=== PATIENT | female | born 1980 | race American Indian/Alaskan Native ===

== ENCOUNTER 2018-07-31 18:54 | Emergency (ER) | payer BC ==
--- NOTE | 2018-07-31 18:59 | Emergency Department Report ---
Chief Complaint: Headache Stated Complaint: MIGRANE 3DAYS/PAIN Time Seen by Provider: 07/31/18 18:57 - HPI History of Present Illness: 3 DAY HX MIGRAINE WITH N/V ambulatory no focal neuro def MSE completed MSE screening note: Focused history and physical exam performed. Due to findings the following was ordered: ED Disposition for MSE Condition: Stable
--- NOTE | 2018-07-31 22:52 | Emergency Department Report ---
ED Headache HPI - General Chief Complaint: Headache Stated Complaint: MIGRANE 3DAYS/PAIN Time Seen by Provider: 07/31/18 18:57 Source: patient, family - History of Present Illness Initial Comments: This is a 38-year-old female here report that she is having right side had migraine 3 days with photophobia and phonophobia and nausea and vomiting. She says she has been having this for 6 years and she has had CT scan of her head done and diagnosed with migraines by a neurologist. She is also complaining of right lower back tooth pain that started last night and is making her migraine worse. She says she has had pain to that tooth before and she just got insurance she does have a dentist. Denies any dizziness or head trauma. Denies any neck pain or stiffness. Denies any nasal congestion, sore throat, shortness of breath or chest pain. Denies any swelling to face. Pain is 10 out of 10 to tooth and had an achy. She says she took [id number] pain medication but it is not working. Pain is exacerbated by light and noise and no alleviating factors. Timing/Duration: constant, increasing, other (3 days) Quality: severe, achy Head Injury Location: frontal (right), temporal (right), parietal (right) Recent Head Trauma: chronic headaches Modifying Factors: improves with: exposure to light, other (noise) Associated Symptoms: nausea/vomiting, other (right lower toothache). denies: confusion, fatigue, facial pain, fever/chills, flushing, loss of consciousness, nasal congestion, nasal drainage, numbness in legs/feet, rash, seizures, sinus infection, stiff neck, vision changes, weakness Allergies/Adverse Reactions: Allergies No Known Allergies Allergy (Unverified 07/31/18 19:19) Home Medications: Ambulatory Orders Acetaminophen/Codeine [Tylenol /Codeine # 3 tab] 1 tab PO Q6H PRN #14 tab 08/01/18 Amoxicillin [Amoxicillin TAB] 875 mg PO BID 10 Days #20 tablet 08/01/18 Ibuprofen [Motrin 600 MG tab] 600 mg PO Q8H PRN #15 tablet 08/01/18 Ondansetron [Zofran ODT TAB] 8 mg PO Q8HR PRN #12 tab.rapdis 08/01/18 SUMAtriptan SUCCINATE [Imitrex] 50 mg PO BID PRN #12 tab 08/01/18 ED Review of Systems ROS: Stated complaint: MIGRANE 3DAYS/PAIN Other details as noted in HPI Constitutional: denies: chills, fever ENT: dental pain. denies: ear pain, throat pain, hearing loss, epistaxis, congestion Respiratory: denies: cough, shortness of breath, wheezing Cardiovascular: denies: chest pain, palpitations, edema, syncope Gastrointestinal: nausea, vomiting. denies: abdominal pain, diarrhea, constipation, hematemesis, hematochezia Musculoskeletal: denies: back pain, joint swelling, arthralgia, myalgia Skin: denies: rash Neurological: headache. denies: numbness, paresthesias, abnormal gait, vertigo ED Past Medical Hx - Past Medical History Previous Medical History?: Yes Hx Headaches / Migraines: Yes - Surgical History Past Surgical History?: Yes Additional Surgical History: Partial Hysterectomy - Family History Family history: hypertension - Social History Smoking Status: Never Smoker Substance Use Type: None - Medications Home Medications: Home Medications Medication Instructions Recorded Confirmed Last Taken Type Acetaminophen/Codeine [Tylenol 1 tab PO Q6H PRN #14 tab 08/01/18 Unknown Rx /Codeine # 3 tab] Amoxicillin [Amoxicillin TAB] 875 mg PO BID 10 Days #20 tablet 08/01/18 Unknown Rx Ibuprofen [Motrin 600 MG tab] 600 mg PO Q8H PRN #15 tablet 08/01/18 Unknown Rx Ondansetron [Zofran ODT TAB] 8 mg PO Q8HR PRN #12 tab.rapdis 08/01/18 Unknown Rx SUMAtriptan SUCCINATE [Imitrex] 50 mg PO BID PRN #12 tab 08/01/18 Unknown Rx ED Physical Exam - General Limitations: No Limitations General appearance: alert, in no apparent distress - Head Head exam: Present: atraumatic, normocephalic, normal inspection, other (normal exam) - Eye Eye exam: Present: normal appearance, PERRL, EOMI. Absent: periorbital swelling, periorbital tenderness Pupils: Present: normal accommodation - ENT ENT exam: Present: normal exam, normal orophraynx, mucous membranes moist, TM's normal bilaterally, normal external ear exam - Expanded ENT Exam Expanded Ear exam: Present: normal external inspection Mouth exam: Present: normal external inspection, tongue normal. Absent: drooling, trismus, muffled voice, tongue elevation, laceration Teeth exam: Present: dental tenderness # (#32), gingival enlargement, other (patient report dental tenderness around tooth #32.). Absent: fractured tooth # 1 - Dental Tenderness (#32), Other (mild gingivitis noted) Throat exam: Positive: normal inspection. Negative: tonsillar erythema, tonsillomegaly, tonsillar exudate, R peritonsillar mass, L peritonsillar mass - Neck Neck exam: Present: normal inspection, full ROM, other (no C-spine tenderness). Absent: tenderness, lymphadenopathy - Respiratory Respiratory exam: Absent: normal lung sounds bilaterally, respiratory distress, chest wall tenderness - Cardiovascular Cardiovascular Exam: Present: regular rate, normal rhythm, normal heart sounds - Extremities Exam Extremities exam: Present: normal inspection, full ROM, normal capillary refill, other (No cce. + 2 pulses in all extremities, no neurovascular compromise). Absent: tenderness, pedal edema, joint swelling, calf tenderness - Back Exam Back exam: Present: normal inspection, full ROM, other (ambulates without any difficulties). Absent: tenderness, CVA tenderness (R), CVA tenderness (L), muscle spasm, paraspinal tenderness, vertebral tenderness, rash noted - Neurological Exam Neurological exam: Present: alert, oriented X3, normal gait, reflexes normal. Absent: motor sensory deficit - Expanded Neurological Exam Expanded Neurological exam: Absent: innattentive, memory loss-remote event, memory loss- recent event, ataxia, receptive aphasia, expressive aphasia, total aphasia, tremor, protecting the airway Patient oriented to: Present: person, place, time Speech: Present: fluid speech Cranial nerves: EOM's Intact: Normal, Gag Reflex: Normal, Tongue Deviation: Normal Cerebellar function: Romberg: Normal Upper motor neuron: Pronator Drift: Normal, Sensory Extinction: Normal Sensory exam: Upper Extremity Light Touch: Normal, Upper Extremity Temperature: Normal, Lower Extremity Light Touch: Normal, Lower Extremity Temperature: Normal Motor strength exam: RUE: 5, LUE: 5, RLE: 5, LLE: 5 Best Eye Response (Rafiq): (4) open spontaneously Best Motor Response (Rafiq): (6) obeys commands Best Verbal Response (Farrar): (5) oriented Rafiq Total: 15 - Psychiatric Psychiatric exam: Present: normal affect, normal mood - Skin Skin exam: Present: warm, dry, intact, normal color. Absent: rash ED Course Vital Signs 07/31/18 07/31/18 07/31/18 19:12 19:16 22:45 Temperature 97.7 F 97.7 F 97.9 F Pulse Rate 69 69 65 Respiratory 18 16 14 Rate Blood Pressure 111/68 111/68 Blood Pressure 119/66 [Right] O2 Sat by Pulse 100 100 100 Oximetry 07/31/18 22:47 Temperature Pulse Rate Respiratory 14 Rate Blood Pressure Blood Pressure [Right] O2 Sat by Pulse Oximetry - Reevaluation(s) Reevaluation #1: 08/01/18 00:02 Patient received Adona 5/325 2 tablets her to take and she started on IV fluids, Toradol 30 mg IV and Zofran 8 mg IV. Patient also started on Imitrex for m igraine headache. Reevaluation #2: 08/01/18 01:14 Patient reevaluated and she voiced relief of pain from tooth and head. She says she is feeling a lot better. ED Medical Decision Making - Medical Decision Making This is a 38-year-old female here for onset of chronic migraine 3 days and also tooth #32 with pain. She was found to have gingivitis and toothache and also migraine headache. Patient was treated with 1 L of IV fluids, Zofran 8 mg IV and she was given Adona 5/325 2 tablets by mouth for toothache. She was also given Decadron 10 mg IV and Imitrex 50 mg by mouth. Her headache has been relieved. I discussed the patient that she needs to follow up with her primary care neurologist and also with a dentist since she now have insurance within 3-5 days. I discussed the diagnosis, treatment plan and she voiced understanding. Patient discharged home in stable condition, vital signs stable she is afebrile and given a prescription for Zofran, Imitrex, Tylenol No. 3, Motrin and amoxicillin. Critical care attestation.: If time is entered above; I have spent that time in minutes in the direct care of this critically ill patient, excluding procedure time. ED Disposition Clinical Impression: Toothache, Gingivitis Migraine Qualifiers: Migraine type: unspecified Status migrainosus presence: without status migrainosus Intractability: not intractable Qualified Code(s): G43.909 - Migraine, unspecified, not intractable, without status migrainosus Nausea & vomiting Qualifiers: Vomiting type: unspecified Vomiting Intractability: non-intractable Qualified Code(s): R11.2 - Nausea with vomiting, unspecified Disposition: DC- TO HOME OR SELFCARE Is pt being admited?: No Does the pt Need Aspirin: No Condition: Stable Instructions: Gingivitis (ED), Migraine Headache (ED), Acute Nausea and Vomiting (ED), Toothache (ED) Additional Instructions: Please follow up with dentist in 3-5 days Follow-up with your neurologist and primary care doctor in 2-3 days and if you do not have a neurologist or primary care please see referral in discharge instruction paperwork Take medication as prescribed but please do not take Tylenol 3 if you driving or operating heavy machinery as this medication causes drowsiness If your condition worsens, return to emergency room Prescriptions: Acetaminophen/Codeine [Tylenol /Codeine # 3 tab] 1 tab PO Q6H PRN #14 tab PRN Reason: moderate to severe pain Amoxicillin [Amoxicillin TAB] 875 mg PO BID 10 Days #20 tablet Ibuprofen [Motrin 600 MG tab] 600 mg PO Q8H PRN #15 tablet PRN Reason: Pain Ondansetron [Zofran ODT TAB] 8 mg PO Q8HR PRN #12 tab.rapdis PRN Reason: Nausea And Vomiting SUMAtriptan SUCCINATE [Imitrex] 50 mg PO BID PRN #12 tab PRN Reason: for migraine headache Referrals: PRIMARY CAREMD [Primary Care Provider] - 2-3 Days [facility] [Outside] - 2-3 Days [facility] [Outside] - 3-5 Days EDWIN NDIAYE MD [Staff Physician] - 2-3 Days Forms: Accompanied Note, Work/School Release Form(ED)
[2018-07-31] MEDS ORDERED: ZOFRAN IV ONE (22:56)
[2018-07-31] MEDS ORDERED: NACL 0.9% 1000 ML 1,000 ML IV ONE (22:56)
[2018-07-31] MEDS ORDERED: TORADOL IVP ONE (22:56)
[2018-07-31] MEDS ORDERED: NORCO 10/325 PO ONE (22:57)
[2018-07-31] MEDS ORDERED: IMITREX PO ONE (22:57)
[2018-07-31] MEDS ORDERED: DECADRON IV ONE (22:57)
[2018-08-01 01:31] VITALS: BP 131/73
== END 2018-08-01 01:49 | disposition home or self-care (01) ==
LOC: ED 18:54
DX: G43.909 Migraine, unspecified, not intractable, without status migrainosus (principal); K05.10 Chronic gingivitis, plaque induced; R11.2 Nausea with vomiting, unspecified
CPT/HCPCS: 96361; 96374; 96375; 99283; J1100; J1885; J2405; J7030

== ENCOUNTER 2018-08-17 09:21 | Outpatient (CLI) | payer BC ==
--- NOTE | 2018-08-18 08:45 | Mammography Report ---
BILATERAL MAMMOGRAM: FINDINGS: Baseline examination. The breast tissue is heterogeneously dense, which could obscure detection of small masses (approximately 50%-75% glandular). No mass, distortion, suspicious calcification, or skin change is seen. CAD was utilized. IMPRESSION: Negative mammogram. There is no mammographic evidence of malignancy. RECOMMENDATION: Follow-up per ACS guidelines. BI-RADS CATEGORY: 1 = Negative ACR BI-RADS MAMMOGRAPHIC CODES: 0 = Needs additional imaging evaluation; 1 = Negative; 2 = Benign; 3 = Probably benign; 4 = Suspicious; 5 = Malignant; 6 = Known biopsy-proven malignancy COMMENT: 1. Dense breast tissue, i.e., adenosis, fibrocystic changes, etc., may obscure an underlying neoplasm. 2. Approximately 10% of cancers are not detected with mammography. 3. A negative mammography report should not delay biopsy if a clinically suspicious mass is present. COMMENT: Patient follow-up letters are generated in [employer].
== END 2018-08-17 09:22 | disposition home or self-care (01) ==
LOC: MAMMO 09:21
PROVIDERS: ATTEND Obstetrics & Gynecology
DX: Z12.31 Encounter for screening mammogram for malignant neoplasm of breast (principal); Z90.710 Acquired absence of both cervix and uterus
CPT/HCPCS: 77067

== ENCOUNTER 2019-02-03 13:20 | Emergency (ER) | payer BC ==
[2019-02-03 13:38] VITALS: BP 116/61
--- NOTE | 2019-02-03 13:41 | Event Note ---
ED Screening Note Date of service: 02/03/19 Time: 13:39 ED Screening Note: 38 y o with hx of back spasm presents with mid low shooting pain down legs and up back caused her to fall earlier today PMH: hysterectomy 2016 This initial assessment/diagnostic orders/clinical plan/treatment(s) is/are s ubject to change based on patients health status, clinical progression and re- assessment by fellow clinical providers in the ED. Further treatment and workup at subsequent clinical providers discretion. Patient/guardian urged not to elope from the ED as their condition may be serious if not clinically assessed and managed. Initial orders include: CT
--- NOTE | 2019-02-03 15:12 | Emergency Department Report ---
HPI - HPI HPI: 38-year-old -[place] Citizen female presents to the emergency department with a complaint of low back pain. She says that she's been dealing with some low back pain for the past 2 weeks that has felt her like it was "[id number]." However today, she was reaching over to fill the dog bowl and she "felt something pop." Since that time she has had low back pain with some radiation down both of her legs. She denies any numbness, problems with bowel or bladder or any obvious neurological deficits. She has not taken anything for her symptoms prior to presentation today. <KATELYN GALLARDO - Last Filed: 02/03/19 15:11> <ESTEFANIA PAEZ - Last Filed: 02/03/19 18:50> - General Chief Complaint: Back Pain/Injury Time Seen by Provider: 02/03/19 13:38 ED Past Medical Hx - Past Medical History Hx Headaches / Migraines: Yes - Surgical History Additional Surgical History: Partial Hysterectomy - Social History Smoking Status: Never Smoker Substance Use Type: Alcohol <KATELYN GALLARDO - Last Filed: 02/03/19 15:11> <ESTEFANIA PAEZ - Last Filed: 02/03/19 18:50> - Medications Home Medications: Home Medications Medication Instructions Recorded Confirmed Last Taken Type Acetaminophen/Codeine [Tylenol 1 tab PO Q6H PRN #14 tab 08/01/18 Unknown Rx /Codeine # 3 tab] Amoxicillin [Amoxicillin TAB] 875 mg PO BID 10 Days #20 tablet 08/01/18 Unknown Rx Ibuprofen [Motrin 600 MG tab] 600 mg PO Q8H PRN #15 tablet 08/01/18 Unknown Rx Ondansetron [Zofran ODT TAB] 8 mg PO Q8HR PRN #12 tab.rapdis 08/01/18 Unknown Rx SUMAtriptan SUCCINATE [Imitrex] 50 mg PO BID PRN #12 tab 08/01/18 Unknown Rx Acetaminophen/Codeine [Tylenol 1 tab PO Q6H PRN #12 tab 02/03/19 Unknown Rx /Codeine # 3 tab] ED Review of Systems ROS: Stated complaint: LOW BACK PAIN Other details as noted in HPI Comment: All other systems reviewed and negative Constitutional: denies: chills, fever Respiratory: denies: shortness of breath Cardiovascular: denies: chest pain, edema Gastrointestinal: denies: abdominal pain Genitourinary: denies: dysuria, discharge Musculoskeletal: back pain. denies: arthralgia Neurological: denies: weakness, numbness <KATELYN GALLARDO - Last Filed: 02/03/19 15:11> ROS: Stated complaint: LOW BACK PAIN Other details as noted in HPI <ESTEFANIA PAEZ - Last Filed: 02/03/19 18:50> Physical Exam - Physical Exam Vital Signs: Vital Signs 02/03/19 13:26 Temperature 98.1 F Pulse Rate 81 Respiratory 16 Rate Blood Pressure 116/61 O2 Sat by Pulse 100 Oximetry <KATELYN GALLARDO - Last Filed: 02/03/19 15:11> - Physical Exam Vital Signs: Vital Signs 02/03/19 13:26 Temperature 98.1 F Pulse Rate 81 Respiratory 16 Rate Blood Pressure 116/61 O2 Sat by Pulse 100 Oximetry <ESTEFANIA PAEZ - Last Filed: 02/03/19 18:50> ED Course Vital Signs 02/03/19 13:26 Temperature 98.1 F Pulse Rate 81 Respiratory 16 Rate Blood Pressure 116/61 O2 Sat by Pulse 100 Oximetry <KATELYN GALLARDO S - Last Filed: 02/03/19 15:11> Vital Signs 02/03/19 13:26 Temperature 98.1 F Pulse Rate 81 Respiratory 16 Rate Blood Pressure 116/61 O2 Sat by Pulse 100 Oximetry <ESTEFANIA PAEZ - Last Filed: 02/03/19 18:50> ED Medical Decision Making - Medical Decision Making This is a 38-year-old female that was originally seen and examined by Katelyn Rios but was are not to me for a pending CT scan. A CT scan of lumbar spine has been obtained and dictated by radiologist with a bulging L5-S1. Patient was notified of the CT results with no questions noted by the patient. Patient was walking from room to the bathroom and stated that symptoms has significantly improved since treatment. I will discharge patient with Tylenol with Codeine for pain. Vital signs are stable. Patient was instructed to Follow-up with a orthopedic doctor in 3-5 days or if symptoms worsen and continue return to emergency room as soon as possible. At time of discharge, the patient does not seem toxic or ill in appearance. No acute signs of distress noted. Patient agrees to discharge treatment plan of care. No further questions noted by the patient. <ESTEFANIA PAEZ - Last Filed: 02/03/19 18:50> Critical care attestation.: If time is entered above; I have spent that time in minutes in the direct care of this critically ill patient, excluding procedure time. <KATELYN GALLARDO - Last Filed: 02/03/19 15:11> Critical care attestation.: If time is entered above; I have spent that time in minutes in the direct care of this critically ill patient, excluding procedure time. <ESTEFANIA PAEZ - Last Filed: 02/03/19 18:50> ED Disposition <KATELYN GALLARDO S - Last Filed: 02/03/19 15:11> Is pt being admited?: No Does the pt Need Aspirin: No <ESTEFANIA PAEZ - Last Filed: 02/03/19 18:50> Clinical Impression: Bulging lumbar disc Disposition: - TO HOME OR SELFCARE Condition: Stable Instructions: Low Back Strain (ED), Acetaminophen/Codeine (By mouth) Additional Instructions: Follow-up with a orthopedic doctor in 3-5 days or if symptoms worsen and continue return to emergency room as soon as possible. Prescriptions: Acetaminophen/Codeine [Tylenol /Codeine # 3 tab] 1 tab PO Q6H PRN #12 tab PRN Reason: Pain , Severe (7-10) Referrals: CHAD SOTELO MD [Primary Care Provider] - 3-5 Days PRIMARY CAREMD [Referring] - 3-5 Days CHARMAINE BLACKMON MD [Staff Physician] - 3-5 Days [facility] [Outside] - 3-5 Days [facility] [Outside] - 3-5 Days Forms: Work/School Release Form(ED)
[2019-02-03] MEDS ORDERED: PERCOCET 5/325 PO ONE (15:28)
[2019-02-03] MEDS ORDERED: TORADOL IM ONE (15:28)
--- NOTE | 2019-02-03 18:06 | Cat Scan Report ---
CT lumbar spine without contrast CLINICAL HISTORY: Back pain, trauma FINDINGS: No previous exams available for comparison. The lumbar spine demonstrate appropriate alignm ent without spondylolisthesis. Furthermore, there is no CT evidence of acute fracture involving the l umbar spine. There is a broad-based left-sided disc bulge L5-S1 which effaces the left lateral recess and encroach es on the proximal left S1 nerve root sheath at. The neural foramen appear patent. There is a minimal disc bulge at L4-5. The upper lumbar disc spaces appear fairly well-maintained without CT evidence o f bony spinal stenosis. All CT scans at this location are performed using the CT dose reduction for A LEIDY by means of automated exposure control. IMPRESSION: There is no CT evidence of acute fracture involving the lumbar spine. There is a broad-based left-sided disc bulge at L5-S1 which encroaches on the left lateral recess as described. Signer Name: Mihai Yost MD Signed: 02/03/2019 6:02 PM Workstation Name: [id number]
== END 2019-02-03 18:57 | disposition home or self-care (01) ==
LOC: ED 13:20
DX: M51.27 Other intervertebral disc displacement, lumbosacral region (principal); G43.909 Migraine, unspecified, not intractable, without status migrainosus; Z90.710 Acquired absence of both cervix and uterus; Z79.899 Other long term (current) drug therapy
CPT/HCPCS: 72131; 96372; 99283; J1885

== ENCOUNTER 2021-03-10 11:00 | Emergency (ER) | payer SELFPAY ==
[2021-03-10 11:19] VITALS: BP 121/86
[2021-03-10] MEDS ORDERED: HYDROcodone/ACETAMINOPHEN 5-325 MG TAB PO ONE (11:46)
[2021-03-10] MEDS ORDERED: IBUPROFEN 800 MG TAB PO ONE (11:47)
[2021-03-10] MEDS ORDERED: LIDOCAINE VISCOUS 2% 15 ML ORAL LIQD PO ONE (11:47)
--- NOTE | 2021-03-10 11:52 | Emergency Department Report ---
HPI - General Chief Complaint: Upper Respiratory Infection Time Seen by Provider: 03/10/21 11:26 - HPI HPI: Room 31 The patient is a 40-year-old female present with a chief complaint of sore throat. The patient states her symptoms began yesterday with a sore throat and fatigue. Patient states she had one episode of nausea vomiting yesterday. Patient states this morning she awakened with a headache and left ear pain in addition to the sore throat and body aches. Patient denies history of cough. The patient has not received any vaccinations against COVID-19. Patient has no known sick contacts. The patient currently gives her sore throat and ear pain a score of 10/10. The patient states her drove her to the emergency department and she is not driving ED Past Medical Hx - Past Medical History Previous Medical History?: Yes Hx Headaches / Migraines: Yes - Surgical History Past Surgical History?: Yes Additional Surgical History: Partial Hysterectomy - Family History Family history: no significant - Social History Smoking Status: Former Smoker (None x8 years) Substance Use Type: Alcohol (Occasional), Marijuana (Occasional) - Medications Home Medications: Home Medications Medication Instructions Recorded Confirmed Last Taken Type Acetaminophen/Codeine [Tylenol 1 tab PO Q6H PRN #14 tab 08/01/18 Unknown Rx /Codeine # 3 tab] Amoxicillin [Amoxicillin TAB] 875 mg PO BID 10 Days #20 tablet 08/01/18 Unknown Rx Ibuprofen [Motrin 600 MG tab] 600 mg PO Q8H PRN #15 tablet 08/01/18 Unknown Rx Ondansetron [Zofran ODT TAB] 8 mg PO Q8HR PRN #12 tab.rapdis 08/01/18 Unknown Rx SUMAtriptan SUCCINATE [Imitrex] 50 mg PO BID PRN #12 tab 08/01/18 Unknown Rx Acetaminophen/Codeine [Tylenol 1 tab PO Q6H PRN #12 tab 02/03/19 Unknown Rx /Codeine # 3 tab] Amoxicillin/Potassium Clav 1 each PO BID #20 tablet 03/10/21 Unknown Rx [Augmentin 875-125 Tablet] HYDROcodone/APAP 5-325 [Hall 1 - 2 each PO Q6HR PRN #10 tablet 03/10/21 Unknown Rx 5/325] Ibuprofen [Motrin 800 MG tab] 800 mg PO Q8HR PRN #20 tablet 03/10/21 Unknown Rx ED Review of Systems ROS: Stated complaint: BODYACHES,SORETHROAT Other details as noted in HPI Constitutional: fever (?) Eyes: denies: eye pain ENT: ear pain, throat pain Respiratory: denies: cough Cardiovascular: denies: chest pain Endocrine: no symptoms reported Gastrointestinal: nausea, vomiting Genitourinary: denies: dysuria Musculoskeletal: myalgia Neurological: headache Physical Exam - Physical Exam Vital Signs: Vital Signs 03/10/21 03/10/21 11:18 11:19 Temperature 99.3 F Pulse Rate 87 Respiratory 18 Rate Blood Pressure 121/86 O2 Sat by Pulse 100 Oximetry Physical Exam: GENERAL: The patient is well-developed well-nourished female sitting in chair appearing to be in mild discomfort. [] HEENT: Normocephalic. Atraumatic. Extraocular motions are intact. Pharynx injected bilaterally. No exudates appreciated. Left TM effusion, no erythema appreciated in the left TM NECK: Supple. No meningitic signs are noted. There is no adenopathy noted. CHEST/LUNGS: Clear to auscultation. There is no respiratory distress noted. HEART/CARDIOVASCULAR: Regular. There is no tachycardia. There is no gallop rub or murmur. ABDOMEN: Abdomen is soft, nontender. Patient has normal bowel sounds. There is no abdominal distention. SKIN: There is no rash. There is no edema. There is no diaphoresis. NEURO: The patient is awake, alert, and oriented. The patient is cooperative. The patient has no focal neurologic deficits. The patient has normal speech. GCS 15 MUSCULOSKELETAL: There is no evidence of acute injury. ED Course Vital Signs 03/10/21 03/10/21 11:18 11:19 Temperature 99.3 F Pulse Rate 87 Respiratory 18 Rate Blood Pressure 121/86 O2 Sat by Pulse 100 Oximetry ED Medical Decision Making - Differential Diagnosis Pharyngitis Critical care attestation.: If time is entered above; I have spent that time in minutes in the direct care of this critically ill patient, excluding procedure time. ED Disposition Clinical Impression: Acute pharyngitis Disposition: HOME / SELF CARE / HOMELESS Is pt being admited?: No Does the pt Need Aspirin: No Condition: Stable Instructions: Pharyngitis, [id number] Additional Instructions: Return to the emergency department should you develop worsening symptoms, inability to tolerate food or liquids, high fever or any other concerns Prescriptions: Amoxicillin/Potassium Clav [Augmentin 875-125 Tablet] 1 each PO BID #20 tablet Ibuprofen [Motrin 800 MG tab] 800 mg PO Q8HR PRN #20 tablet PRN Reason: Pain, Moderate (4-6) HYDROcodone/APAP 5-325 [Hall 5/325] 1 - 2 each PO Q6HR PRN #10 tablet PRN Reason: Pain Referrals: ESTELA MELARA MD [Staff Physician] - 3-5 Days (Dr. Melara is an otol aryngologist (ear nose and throat doctor). Please follow-up with him for further evaluation) Time of Disposition: 11:54
== END 2021-03-10 12:14 | disposition home or self-care (01) ==
LOC: ED 11:00
DX: J02.9 Acute pharyngitis, unspecified (principal); G43.909 Migraine, unspecified, not intractable, without status migrainosus; Z90.711 Acquired absence of uterus with remaining cervical stump; Z87.891 Personal history of nicotine dependence
CPT/HCPCS: 99282

== ENCOUNTER 2022-01-23 18:01 | Emergency (ER) | payer BC, MEDICAID ==
[2022-01-23 18:41] VITALS: BP 124/75
[2022-01-23] MEDS ORDERED: PANTOPRAZOLE 40 MG TAB PO ONE (21:21)
[2022-01-23] MEDS ORDERED: KETOROLAC 30 MG/1 ML INJ IM ONE (21:21)
[2022-01-23] MEDS ORDERED: HYDROmorphone 0.5 MG/0.5 ML INJ IM ONE (21:21)
[2022-01-23] MEDS ORDERED: ACETAMINOPHEN 500 MG TAB PO ONE (21:21)
--- NOTE | 2022-01-23 21:22 | Emergency Department Report ---
ED General Adult HPI - General Chief complaint: Chest Pain Stated complaint: CHEST AND BACK PAIN WHEN BREATHING OR LAYING Time Seen by Provider: 01/23/22 21:10 Source: patient, RN notes reviewed, old records reviewed Mode of arrival: Ambulatory Limitations: No Limitations - History of Present Illness Initial comments: The patient was evaluated in the emergency department for symptoms described in the history of present illness. He/she was evaluated in the context of the global COVID-19 pandemic, which necessitated consideration that the patient kay ht be at risk for infection with the virus that causes COVID-19. Institutional protocols and algorithms that pertain to the evaluation of patients at risk for COVID-19 are in a state of rapid change based on information released by regulatory bodies including the CDC and federal and state organizations. These policies and algorithms were followed during the patient's care in the emergency department. Please note that these policies, procedures and recommendations changed on a rapid basis. During the history and physical examination, I am chaperoned by nurse Mee Amaya. This is a pleasant and cooperative 41-year-old female who is right-hand dominant who has a distant history of partial hysterectomy. She otherwise denies chronic medical conditions. She works as a [employer], and recently lifted a heavy 300 pound patient. The patient herself is quite slight in stature. She presents to the department today with complaint of lower back pain, chest wall pain, and upper back pain, that increases with deep breathing, range of motion, laying flat. Decreases with sitting upright and certain positions. No vomiting, diaphoresis or exertional shortness of breath. Pains do not radiate to the arms or legs. There is no vomiting or diaphoresis. Patient denies travel, surgery, immobili zation, oral contraceptive use, and DVT/pulmonary embolism risk factors. Reports no family history of DVT or pulmonary embolism. Has taken [id number] medications at home, with minimal improvement in symptoms. No urinary symptoms. Pain has been present since yesterday morning. -: days(s) Location: chest, back Severity scale (0 -10): 9 Consistency: other Improves with: other Worsens with: other - Related Data Previous Rx's Medication Instructions Recorded Last Taken Type Amoxicillin [Amoxicillin TAB] 875 mg PO BID 10 Days #20 tablet 08/01/18 Unknown Rx Ibuprofen [Motrin 600 MG tab] 600 mg PO Q8H PRN #15 tablet 08/01/18 Unknown Rx Ondansetron [Zofran ODT TAB] 8 mg PO Q8HR PRN #12 tab.rapdis 08/01/18 Unknown Rx SUMAtriptan SUCCINATE [Imitrex] 50 mg PO BID PRN #12 tab 08/01/18 Unknown Rx Amoxicillin/Potassium Clav 1 each PO BID #20 tablet 03/10/21 Unknown Rx [Augmentin 875-125 Tablet] Acetaminophen [Non-Aspirin Extra 500 mg PO Q6HR PRN #30 tablet 01/23/22 Unknown Rx Strength] Ibuprofen [Motrin] 600 mg PO Q8H PRN #30 tablet 01/23/22 Unknown Rx Allergies Allergy/AdvReac Type Severity Reaction Status Date / Time No Known Allergies Allergy Verified 01/23/22 18:42 ED Review of Systems ROS: Stated complaint: CHEST AND BACK PAIN WHEN BREATHING OR LAYING Other details as noted in HPI Constitutional: denies: fever Eyes: denies: eye discharge ENT: denies: epistaxis Respiratory: other (Pain with deep inspiration). denies: cough Cardiovascular: chest pain Gastrointestinal: denies: abdominal pain Musculoskeletal: back pain Neurological: denies: weakness Psychiatric: anxiety Hematological/Lymphatic: denies: easy bleeding ED Past Medical Hx - Past Medical History Hx Headaches / Migraines: Yes - Surgical History Additional Surgical History: Partial Hysterectomy - Social History Smoking Status: Former Smoker (None x8 years) Substance Use Type: Alcohol (Occasional), Marijuana (Occasional) - Medications Home Medications: Home Medications Medication Instructions Recorded Confirmed Last Taken Type Amoxicillin [Amoxicillin TAB] 875 mg PO BID 10 Days #20 tablet 08/01/18 Unknown Rx Ibuprofen [Motrin 600 MG tab] 600 mg PO Q8H PRN #15 tablet 08/01/18 Unknown Rx Ondansetron [Zofran ODT TAB] 8 mg PO Q8HR PRN #12 tab.rapdis 08/01/18 Unknown Rx SUMAtriptan SUCCINATE [Imitrex] 50 mg PO BID PRN #12 tab 08/01/18 Unknown Rx Amoxicillin/Potassium Clav 1 each PO BID #20 tablet 03/10/21 Unknown Rx [Augmentin 875-125 Tablet] Acetaminophen [Non-Aspirin Extra 500 mg PO Q6HR PRN #30 tablet 01/23/22 Unknown Rx Strength] Ibuprofen [Motrin] 600 mg PO Q8H PRN #30 tablet 01/23/22 Unknown Rx ED Physical Exam - General Limitations: No Limitations General appearance: alert, anxious - Head Head exam: Present: atraumatic, normocephalic - Eye Eye exam: Present: normal appearance, EOMI. Absent: nystagmus - ENT ENT exam: Present: normal exam, normal orophraynx, mucous membranes moist, normal external ear exam - Neck Neck exam: Present: normal inspection, full ROM. Absent: tenderness, meningismus - Respiratory Respiratory exam: Present: normal lung sounds bilaterally, chest wall tenderness. Absent: respiratory distress, wheezes, rales, rhonchi, stridor - Cardiovascular Cardiovascular Exam: Present: regular rate, normal rhythm, normal heart sounds. Absent: bradycardia, tachycardia, irregular rhythm, systolic murmur, diastolic murmur, rubs, gallop - GI/Abdominal GI/Abdominal exam: Present: soft. Absent: distended, tenderness, guarding, rebound, rigid, pulsatile mass - Extremities Exam Extremities exam: Present: normal inspection, full ROM, normal capillary refill, other (2+ pulses noted in the bilateral upper and lower extremities. There is no palpable cord. negative Homans sign. Muscular compartments are soft. The pelvis is stable.). Absent: pedal edema, calf tenderness - Back Exam Back exam: Present: normal inspection, muscle spasm, paraspinal tenderness. Absent: tenderness, CVA tenderness (R), CVA tenderness (L), vertebral tenderness - Neurological Exam Neurological exam: Present: alert, oriented X3, reflexes normal, other (No facial droop. Tongue midline. Extraocular movements intact bilaterally. Facial sensation intact to light touch in V1, V2, V3 distribution bilaterally. 5 and a 5 strength in 4 extremities. Sensation intact to light touch in 4 extremities.). Absent: motor sensory deficit - Psychiatric Psychiatric exam: Present: anxious - Skin Skin exam: Present: warm, dry, intact, normal color. Absent: rash ED Course Vital Signs 01/23/22 01/23/22 18:38 22:17 Temperature 98.9 F Pulse Rate 83 Blood Pressure 124/75 [Right] O2 Sat by Pulse 100 Oximetry O2 Sat by Pulse 100 Oximetry [ Digit-Finger] - Reevaluation(s) Reevaluation #1: 01/23/22 22:14 Differential diagnosis, including but not limited to: GERD, gastritis, hiatal hernia, musculoskeletal pain, costochondritis, pleurisy, pulmonary embolism, pneumothorax, myopericarditis, coronary artery disease Assessment and plan: 41-year-old female presenting with lower back pain, chest wall pain which is pleuritic, in the context of lifting a heavy 300 pound patient. She is not currently tachycardic, tachypneic or hypoxic, she denies DVT and pulmonary embolism risk factors, she is PERC negative, and low risk by Wells criteria for pulmonary embolism. She is low risk for major adverse cardiac event as per heart score, troponin is negative x1 in the context of approximately 36 hours of symptoms. EKG nonspecific, but unchanged x2. X-ray of the chest unremarkable. Laboratory studies unremarkable. Urinalysis pending. Patient and family member educated as to the natural history of presumed musculoskeletal pain. 01/23/22 22:30 Urinalysis unremarkable. Patient denies irritative and obstructive urinary symptoms. Counseled patient and family members on results of laboratory studies and imaging studies, and natural history of probable musculoskeletal pain. Return precautions are reviewed. All questions answered. - Pulse Oximetry Interpretation Digit-Finger Initial Pulse Oximetry Readin O2 Sat by Pulse Oximetry: 100 Actions Taken: none ED Medical Decision Making - Lab Data Result diagrams: 01/23/22 21:31 01/23/22 21:31 Vital Signs 01/23/22 18:38 Temperature 98.9 F Pulse Rate 83 Blood Pressure 124/75 [Right] O2 Sat by Pulse 100 Oximetry Respiratory rate 12-14 Vital Signs 01/23/22 18:38 Temperature 98.9 F Pulse Rate 83 Blood Pressure 124/75 [Right] O2 Sat by Pulse 100 Oximetry Lab Results 01/23/22 01/23/22 01/23/22 Range/Units 21:31 21:31 21:31 Hgb 11.5 (10.1-14.3) gm/dl Hct 33.3 (30.3-42.9) % PT 13.5 (12.2-14.9) Sec. INR 0.93 (0.87-1.13) D-Dimer 156.98 (0-234) ng/mlDDU Sodium 136 L (137-145) mmol/L Potassium 3.9 (3.6-5.0) mmol/L Chloride 100.2 (98-107) mmol/L Carbon Dioxide 26 (22-30) mmol/L Anion Gap 14 mmol/L BUN 5 L (7-17) mg/dL Creatinine 0.5 L (0.6-1.2) mg/dL Estimated GFR > 60 ml/min BUN/Creatinine Ratio 10 % Glucose 96 (65-100) mg/dL Calcium 10.0 (8.4-10.2) mg/dL Total Bilirubin 0.40 (0.1-1.2) mg/dL AST 10 (5-40) units/L ALT 6 L (7-56) units/L Alkaline Phosphatase 60 (35-129) units/L Troponin T < 0.010 (0.00-0.029) ng/mL Total Protein 7.5 (6.3-8.2) g/dL Albumin 4.3 (3.9-5) g/dL Albumin/Globulin Ratio 1.3 % - EKG Data -: EKG Interpreted by Mn EKG shows normal: sinus rhythm Rate: normal - EKG Data 01/23/22 22:12 The first EKG is interpreted at 17: 00 Sinus rhythm, 87 bpm. Normal axis, normal P wave axis, atrial enlargement, nonspecific T wave abnormalities, this is not a STEMI. EKG #2 appears to be unchanged from prior. Another EKG is consistent with a STEMI. - Radiology Data Radiology results: pending, report reviewed, image reviewed CHEST 2 VIEWS INDICATION / CLINICAL INFORMATION: Chest Pain. COMPARISON: None available. FINDINGS: SUPPORT DEVICES: None. HEART / MEDIASTINUM: No significant abnormality. LUNGS / PLEURA: No significant pulmonary abnormality. No significant pleural effusion. No pneumothorax. ADDITIONAL FINDINGS: No significant additional findings. IMPRESSION: 1. No acute abnormality of the chest. Signer Name: Jef Lu MD Signed: 01/23/2022 9:02 PM Workstation Name: [id number] Critical care attestation.: If time is entered above; I have spent that time in minutes in the direct care of this critically ill patient, excluding procedure time. ED Disposition Clinical Impression: Chest wall pain Lower back pain Qualifiers: Chronicity: acute Back pain laterality: bilateral Sciatica presence: without sciatica Qualified Code(s): M54.50 - Low back pain, unspecified Disposition: 01 HOME / SELF CARE / HOMELESS Is pt being admited?: No Does the pt Need Aspirin: No Condition: Good Instructions: Costochondritis Additional Instructions: Laboratory studies today were essentially nonactionable. X-ray of the chest is unremarkable. Symptoms most likely coming from chest wall pain and musculoskeletal back pain. Take the prescribed pain medications as needed and directed. Rest, avoid heavy lifting and strenuous physical activities, alternate ice packs and heat packs as needed for physical pain. We recommend follow-up with your outpatient primary care doctor within the next 3 to 5 days. Please return to the department right away with any new, worsened or different symptoms. Please return to the emergency room right away with new pain, worsened pain, migration of pain, projectile vomiting, change in mental status, confusion, inability tolerate liquid feeds, new, worsened or different symptoms not present on the initial emergency room evaluation Prescriptions: Ibuprofen [Motrin] 600 mg PO Q8H PRN #30 tablet PRN Reason: Pain Acetaminophen [Non-Aspirin Extra Strength] 500 mg PO Q6HR PRN #30 tablet PRN Reason: Pain , Severe (7-10) Referrals: ASHLEY SOLORZANO MD [Primary Care Provider] - 3-5 Days Forms: Work/School Release Form(ED) Heart Score - HEART Score History: Slightly suspicious EKG: Non-specific Age: < 45 Risk factors: No known risk factors Troponin: < normal limit HEART Score: 1 - EKG Read Time Time EKG Completed: 21:36 EKG Read Time: 21:36 - Critical Actions Critical Actions: 0-3 pts:0.9-1.7%risk of adverse cardiac event.Candidate for discharge
[2022-01-23 21:43] LABS: Hematocrit 33.3 % (30.3-42.9); Hemoglobin 11.5 gm/dl (10.1-14.3)
[2022-01-23 21:53] LABS: INR 0.93 (0.87-1.13)
[2022-01-23 22:03] LABS: Alanine Aminotransferase 6 units/L (7-56); Albumin 4.3 g/dL (3.9-5); Blood Urea Nitrogen 5 mg/dL (7-17); Hemolysis Index 3
--- NOTE | 2022-01-23 22:06 | XRay Report ---
CHEST 2 VIEWS INDICATION / CLINICAL INFORMATION: Chest Pain. COMPARISON: None available. FINDINGS: SUPPORT DEVICES: None. HEART / MEDIASTINUM: No significant abnormality. LUNGS / PLEURA: No significant pulmonary abnormality. No significant pleural effusion. No pneumothora x. ADDITIONAL FINDINGS: No significant additional findings. IMPRESSION: 1. No acute abnormality of the chest. Signer Name: Jef Lu MD Signed: 01/23/2022 10:02 PM Workstation Name: [id number]
[2022-01-23 22:08] LABS: BUN/Creatinine Ratio 10
[2022-01-23 22:24] LABS: Color,Urine Colorless (Yellow)
[2022-01-23 22:27] LABS: Bacteria,Urine 1+ /HPF (Negative); Mucus,Urine FEW /HPF; RBC,Urine < 1.0 /HPF (0.0-6.0); WBC,Urine < 1.0 /HPF (0.0-6.0)
--- NOTE | 2022-01-24 22:38 | Electrocardiograph Report ---
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
--- NOTE | 2022-01-24 22:39 | Electrocardiograph Report ---
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
== END 2022-01-24 00:02 | disposition home or self-care (01) ==
LOC: ED 18:01
DX: R07.89 Other chest pain (principal); M54.50 Low back pain, unspecified; Z87.891 Personal history of nicotine dependence; F10.20 Alcohol dependence, uncomplicated
CPT/HCPCS: 36415; 71046; 80053; 81001; 84484; 85014; 85018; 85379; 85610; 93005; 96372; 99284; J1170; J1885